=== PATIENT | female | born 1975 | race Caucasian/White ===

== ENCOUNTER 2023-05-02 05:50 | Day surgery (SDC) | payer OTHER ==
[2023-04-28 10:07] VITALS: BMI 31.4
[2023-05-02] MEDS ORDERED: fentaNYL PF 100 MCG/2 ML SYRINGE ONE (06:22)
[2023-05-02] MEDS ORDERED: Dexmedetomidine 200 MCG/2 ML VIAL ONE (06:23)
[2023-05-02] MEDS ORDERED: HYDROmorphone 0.5 MG/0.5 ML SYRINGE ONE (06:23)
[2023-05-02] MEDS ORDERED: SUGAMMADEX SODIUM 200 MG/2 ML VIAL ONE (06:23)
[2023-05-02] MEDS ORDERED: Indocyanine Green 25 MG/10 ML VIAL ONE (06:39)
[2023-05-02] MEDS ORDERED: Bupivacaine/Epinephrine 0.25% 30 ML VIAL ONE (06:39)
[2023-05-02] MEDS ORDERED: Midazolam HCl 2 mg/2 ml Vial ONE (07:00)
[2023-05-02] MEDS ORDERED: Sodium Chloride 0.9% 100 ML ONE (07:00)
[2023-05-02] MEDS ORDERED: cefOXitin 2 GM VIAL ONE (07:00)
[2023-05-02] MEDS ORDERED: Dexamethasone 20 MG/5 ML VIAL ONE (07:50)
[2023-05-02] MEDS ORDERED: Lidocaine 1% PF 5 ML VIAL ONE (07:50)
[2023-05-02] MEDS ORDERED: PHENYLEPHRINE-NS 100 MCG/ML 10 ML SYRINGE ONE (07:50)
[2023-05-02] MEDS ORDERED: PROPOFOL 200 MG/20 ML VIAL ONE (07:50)
[2023-05-02] MEDS ORDERED: Rocuronium Bromide 10 MG/ML (10ML VIAL) ONE (07:50)
[2023-05-02] MEDS ORDERED: Ondansetron PF 4 MG/2 ML Vial ONE (07:50)
[2023-05-02] MEDS ORDERED: fentaNYL 50 mcg/mL 1 mL Vial ONE ×2 (09:28→09:49)
[2023-05-02] MEDS ORDERED: HYDROcodone/Acetaminophen 5/325 mg Tablet ONE (10:54)
[2023-05-02] MEDS ORDERED: Ondansetron ODT 8 MG TAB ONE (11:43)
== END 2023-05-02 12:28 | disposition home or self-care (01) ==
LOC: SDC 05:50
PROVIDERS: ATTEND Surgery
PROC: 0FT44ZZ Resection of Gallbladder, Percutaneous Endoscopic Approach (ICD-10-PCS; principal; 2023-05-02)
DX: K80.10 Calculus of gallbladder with chronic cholecystitis without obstruction (principal); D64.9 Anemia, unspecified; Z79.899 Other long term (current) drug therapy
CPT/HCPCS: 88304; J0694; J1170; J2250; J3010; J3490; Q0162